=== PATIENT | male | born 1995 | race Caucasian/White ===

== ENCOUNTER 2018-04-14 17:37 | Emergency (ER) | payer SELFPAY ==
[2018-04-14 20:51] LABS: ADD UMIC YES; UR AMORPHOUS CRYSTAL FEW /HPF (NONE SEEN); UR ASCORBIC ACID NEGATIVE (NEGATIVE); UR BACTERIA FEW /HPF (NONE SEEN); UR BILIRUBIN (Dip) NEGATIVE (NEGATIVE); UR BLOOD (Dip) NEGATIVE (NEGATIVE); UR CLARITY CLOUDY (CLEAR); UR COLOR YELLOW (YELLOW); UR GLUCOSE (Dip) NEGATIVE (NEGATIVE); UR KETONES (Dip) NEGATIVE (NEGATIVE); UR LEUKOCYTE ESTERASE (Dip) 1+ Leu/ul (NEGATIVE); UR NITRITE (Dip) NEGATIVE (NEGATIVE); UR RBC 7 /HPF (0-5); UR SPECIFIC GRAVITY (Dip) 1.018 (1.003-1.030); UR TOTAL PROTEIN (Dip) NEGATIVE (NEGATIVE); UR UROBILINOGEN (Dip) 1+ mg/dL (NEGATIVE); UR WBC 77 /HPF (0-5)
[2018-04-14] MEDS: AZITHROMYCIN 250 MG TAB PO (22:45)
[2018-04-14] MEDS: CEFTRIAXONE 250 MG INJ IM (22:46)
== END 2018-04-14 22:50 | disposition home or self-care (01) ==
LOC: FTE 17:37
DX: N30.01 Acute cystitis with hematuria (principal); Z72.51 High risk heterosexual behavior; Z87.891 Personal history of nicotine dependence
CPT/HCPCS: 81001; 87591; 96372; 99284-25